=== PATIENT | male | born 1955 | race Caucasian/White ===

== ENCOUNTER 2018-03-13 08:05 | Outpatient (REF) | payer OTHER, SELFPAY ==
[2018-03-13 23:12] LABS: Microalb ug/mg Crea 37.9 ug/mg Cr
== END 2018-03-13 08:25 ==
LOC: NCHCN 08:05
PROVIDERS: Visit Provider Internal Medicine
DX: E11.9 Type 2 diabetes mellitus without complications (principal)
CPT/HCPCS: 82043; 82570

== ENCOUNTER 2019-03-04 11:43 | Outpatient (REF) | payer OTHER, SELFPAY ==
[2019-03-04 21:44] LABS: COMMENT (LAB VIEW ONLY) 136.85 mg/dL
[2019-03-04 21:48] LABS: Anion Gap 10.8 mmol/L (3-11); BUN 14 mg/dL (7-18); CO2 26.2 mmol/L (21.0-32.0); CREATININE 0.97 mg/dL (0.70-1.30); Calcium 9.4 mg/dL (8.5-10.1); Calculated LDL 50 mg/dL; Chloride 101 mmol/L (98-107); Cholesterol 123 mg/dL (50-200); Glucose 193 mg/dL (70-100); HDL Cholesterol 34 mg/dL (40-60); Potassium 3.7 mmol/L (3.5-5.1); Sodium 138 mmol/L (136-145); Triglyceride 195 mg/dL (30-150)
[2019-03-04 22:07] LABS: Hemoglobin A1C 7.6 % (4.5-6.2)
== END 2019-03-04 12:03 ==
LOC: NCHCN 11:43
PROVIDERS: Visit Provider Internal Medicine
DX: E11.21 Type 2 diabetes mellitus with diabetic nephropathy (principal); I10 Essential (primary) hypertension; E66.9 Obesity, unspecified
CPT/HCPCS: 80048; 80061; 82043; 82570; 83036

== ENCOUNTER 2020-02-09 11:19 | Outpatient (REF) | payer OTHER, SELFPAY ==
[2020-02-09 21:14] LABS: ALT 42 U/L (16-63); AST 32 U/L (15-37); Albumin 4.1 g/dL (3.4-5.0); Alkaline Phosphatase 66 U/L (46-116); Anion Gap 11.5 mmol/L (3-11); BUN 19 mg/dL (7-18); Bilirubin, Total 0.6 mg/dL (0.2-1.0); CO2 24.5 mmol/L (21.0-32.0); CREATININE 0.91 mg/dL (0.70-1.30); Calcium 9.4 mg/dL (8.5-10.1); Calculated LDL 52 mg/dL (<100); Chloride 101 mmol/L (98-107); Cholesterol 117 mg/dL (<200); Glucose 206 mg/dL (74-106); HDL Cholesterol 31 mg/dL (40-60); Potassium 4.1 mmol/L (3.5-5.1); Sodium 137 mmol/L (136-145); Total Protein 7.7 g/dL (6.4-8.2); Triglyceride 173 mg/dL (<150)
[2020-02-09 21:20] LABS: Microalb ug/mg Crea 29.1 ug/mg Cr
== END 2020-02-09 11:39 ==
LOC: NCHCN 11:19
PROVIDERS: Visit Provider Internal Medicine
DX: I10 Essential (primary) hypertension (principal); E78.5 Hyperlipidemia, unspecified
CPT/HCPCS: 80053; 80061; 82043; 82570

== ENCOUNTER 2020-03-24 22:33 | Outpatient (REF) | payer OTHER, SELFPAY ==
[2020-03-24 22:13] LABS: ALT 39 U/L (16-63); AST 30 U/L (15-37); Alkaline Phosphatase 62 U/L (46-116); Anion Gap 8.5 mmol/L (3-11); BUN 15 mg/dL (7-18); Bilirubin, Total 0.7 mg/dL (0.2-1.0); CO2 28.5 mmol/L (21.0-32.0); CREATININE 0.96 mg/dL (0.70-1.30); Calculated LDL 39 mg/dL (<100); Chloride 103 mmol/L (98-107); Cholesterol 112 mg/dL (<200); Glucose 177 mg/dL (74-106); HDL Cholesterol 29 mg/dL (40-60); Sodium 140 mmol/L (136-145); Total Protein 7.3 g/dL (6.4-8.2); Triglyceride 221 mg/dL (<150)
== END 2020-03-24 22:53 ==
LOC: NCHCN 22:33
PROVIDERS: Visit Provider Internal Medicine
DX: E11.9 Type 2 diabetes mellitus without complications (principal); I10 Essential (primary) hypertension; E78.5 Hyperlipidemia, unspecified; E66.9 Obesity, unspecified
CPT/HCPCS: 80053; 80061

== ENCOUNTER 2020-08-16 16:32 | Outpatient (REF) | payer MEDICARE, SELFPAY ==
[2020-08-16 13:43] LABS: Anion Gap 12.1 mmol/L (3-11); BUN 13 mg/dL (7-18); CO2 26.9 mmol/L (21.0-32.0); CREATININE 0.9 mg/dL (0.70-1.30); Calcium 9.3 mg/dL (8.5-10.1); Chloride 102 mmol/L (98-107); Glucose 151 mg/dL (74-106); Potassium 3.7 mmol/L (3.5-5.1); Sodium 141 mmol/L (136-145)
== END 2020-08-16 16:33 | disposition home or self-care (01) ==
LOC: NCHCN 16:32
PROVIDERS: Visit Provider Internal Medicine
DX: I10 Essential (primary) hypertension (principal); E11.9 Type 2 diabetes mellitus without complications
CPT/HCPCS: 80048

== ENCOUNTER 2021-01-14 16:06 | Outpatient (REF) | payer MEDICARE, SELFPAY ==
[2021-01-14 14:46] LABS: Abs Immature Grans 0.04 10^3/uL (0.0-0.06); Absolute Basophil Count 0.04 10^3/uL (0.0-0.2); Absolute Eosinophil Count 0.12 10^3/uL (0.0-0.7); Absolute Lymphocyte Count 2.52 10^3/uL (1.2-3.4); Absolute Monocyte Count 0.75 10^3/uL (0.1-0.8); Basophils % 0.6; Eosinophils % 1.7; HCT 45.6 % (40.0-50.0); HGB 15.4 g/dL (13.5-17.5); Immature Grans % 0.6; Lymphocytes % 36.2; MCH 29.9 pg (27.0-33.0); MCHC 33.8 % (32.0-36.0); MCV 88.5 fL (80-95); MPV 11.4 fL (8.0-11.0); Monocytes % 10.8; Neutrophils % 50.1; Nucleated RBC 0 %; Platelet Count 143 10^3/uL (130-400); RBC 5.15 10^6/uL (4.36-5.78); RDW 12.8 % (11.8-14.1); RDW-SD 41.8 fL; WBC 6.97 10^3/uL (4.4-10.8)
[2021-01-14 14:57] LABS: COMMENT (LAB VIEW ONLY) 33.72 mg/dL; Microalb ug/mg Crea 21.1 ug/mg Cr
== END 2021-01-14 16:07 | disposition home or self-care (01) ==
LOC: NCHCN 16:06
PROVIDERS: Visit Provider Nurse Practitioner Family
DX: E11.9 Type 2 diabetes mellitus without complications (principal)
CPT/HCPCS: 82043; 82570; 85025

== ENCOUNTER 2021-10-28 18:39 | Outpatient (REF) | payer OTHER, SELFPAY ==
[2021-10-28 15:11] LABS: ALT 59 U/L (16-63); AST 48 U/L (15-37); Albumin 3.9 g/dL (3.4-5.0); Alkaline Phosphatase 104 U/L (46-116); Anion Gap 11.1 mmol/L (3-11); BUN 14 mg/dL (7-18); Bilirubin, Total 0.6 mg/dL (0.2-1.0); CO2 26.9 mmol/L (21.0-32.0); CREATININE 0.9 mg/dL (0.70-1.30); Calcium 9.1 mg/dL (8.5-10.1); Calculated LDL 58 mg/dL (<100); Chloride 101 mmol/L (98-107); Cholesterol 130 mg/dL (<200); Glucose 196 mg/dL (74-106); HDL Cholesterol 37 mg/dL (40-60); Potassium 3.8 mmol/L (3.5-5.1); Sodium 139 mmol/L (136-145); Total Protein 7.5 g/dL (6.4-8.2); Triglyceride 178 mg/dL (<150)
[2021-10-28 15:17] LABS: COMMENT (LAB VIEW ONLY) 91.92 mg/dL; Microalb ug/mg Crea 34.4 ug/mg Cr
== END 2021-10-28 18:40 | disposition home or self-care (01) ==
LOC: NCHCN 18:39
PROVIDERS: Visit Provider Internal Medicine
DX: E11.9 Type 2 diabetes mellitus without complications (principal); I10 Essential (primary) hypertension
CPT/HCPCS: 80053; 80061; 82043; 82570

== ENCOUNTER 2022-09-14 09:09 | Outpatient (REF) | payer OTHER, SELFPAY ==
[2022-09-14 16:12] LABS: ALT 62 U/L (16-63); AST 54 U/L (15-37); Alkaline Phosphatase 98 U/L (46-116); Anion Gap 8.9 mmol/L (3-11); BUN 19 mg/dL (7-18); Bilirubin, Total 0.5 mg/dL (0.2-1.0); CO2 26.1 mmol/L (21.0-32.0); CREATININE 1.1 mg/dL (0.70-1.30); Calcium 9.6 mg/dL (8.5-10.1); Calculated LDL 70 mg/dL (<100); Chloride 99 mmol/L (98-107); Cholesterol 135 mg/dL (<200); Estimated GFR 73.58 (mL/min/1.73m2); Glucose 164 mg/dL (74-106); HDL Cholesterol 45 mg/dL (40-60); Sodium 134 mmol/L (136-145); Triglyceride 104 mg/dL (<150)
[2022-09-14 17:10] LABS: COMMENT (LAB VIEW ONLY) 66.29 mg/dL; Microalb ug/mg Crea 23.5 ug/mg Cr
== END 2022-09-14 09:10 | disposition home or self-care (01) ==
LOC: NCHCN 09:09
PROVIDERS: Visit Provider Nurse Practitioner Family
DX: E11.9 Type 2 diabetes mellitus without complications (principal); I10 Essential (primary) hypertension
CPT/HCPCS: 80053; 80061; 82043; 82570

== ENCOUNTER 2023-08-15 08:12 | Outpatient (REF) | payer OTHER, SELFPAY ==
[2023-08-15 14:48] LABS: Hemoglobin A1C 7.1 % (<5.7)
[2023-08-15 15:03] LABS: ALT 65 U/L (16-63); AST 76 U/L (15-37); Albumin 3.9 g/dL (3.4-5.0); Alkaline Phosphatase 115 U/L (46-116); Anion Gap 10.3 mmol/L (3-11); BUN 19 mg/dL (7-18); Bilirubin, Total 0.6 mg/dL (0.2-1.0); CO2 26.7 mmol/L (21.0-32.0); Calcium 9.9 mg/dL (8.5-10.1); Calculated LDL 78 mg/dL (<100); Chloride 104 mmol/L (98-107); Cholesterol 143 mg/dL (<200); Estimated GFR 81.98 (mL/min/1.73m2); Glucose 172 mg/dL (74-106); HDL Cholesterol 44 mg/dL (40-60); Potassium 4.1 mmol/L (3.5-5.1); Sodium 141 mmol/L (136-145); Total Protein 8.2 g/dL (6.4-8.2); Triglyceride 108 mg/dL (<150)
== END 2023-08-15 08:13 | disposition home or self-care (01) ==
LOC: NCHCN 08:12
PROVIDERS: Visit Provider Nurse Practitioner Family
DX: E78.5 Hyperlipidemia, unspecified (principal); E11.8 Type 2 diabetes mellitus with unspecified complications
CPT/HCPCS: 80053; 80061; 83036

== ENCOUNTER 2023-08-21 14:42 | Outpatient (REF) | payer OTHER, SELFPAY ==
[2023-08-21 17:09] LABS: COMMENT (LAB VIEW ONLY) 30.64 mg/dL; Microalb ug/mg Crea 37.9 ug/mg Cr
== END 2023-08-21 14:43 | disposition home or self-care (01) ==
LOC: NCHCN 14:42
PROVIDERS: Referring Provider Nurse Practitioner Family; Visit Provider Nurse Practitioner Family
DX: E11.8 Type 2 diabetes mellitus with unspecified complications (principal)
CPT/HCPCS: 82043; 82570

== ENCOUNTER 2023-10-02 13:36 | Outpatient (REF) | payer OTHER, SELFPAY ==
[2023-10-02 21:30] LABS: Abs Immature Grans 0.02 10^3/uL (0.0-0.06); Absolute Basophil Count 0.03 10^3/uL (0.0-0.2); Absolute Eosinophil Count 0.18 10^3/uL (0.0-0.7); Absolute Monocyte Count 0.69 10^3/uL (0.1-0.8); Basophils % 0.4; Eosinophils % 2.2; HCT 41.3 % (40.0-50.0); HGB 14.1 g/dL (13.5-17.5); Immature Grans % 0.2; Lymphocytes % 34.9; MCH 30.9 pg (27.0-33.0); MCHC 34.1 % (32.0-36.0); MCV 90 fL (80-95); MPV 12.8 fL (8.0-11.0); Monocytes % 8.3; Platelet Count 107 10^3/uL (130-400); RBC 4.57 10^6/uL (4.36-5.78); WBC 8.32 10^3/uL (4.4-10.8)
[2023-10-02 21:40] LABS: Bilirubin Negative (Negative); Blood Trace-intact (Negative); Clarity Sl Cloudy (Clear); Glucose >=1000 mg/dL (Negative); Ketones Negative (Negative); Leukocyte Esterase Negative (Negative); Nitrite Negative (Negative); Specific Gravity 1.025 (1.005-1.025); Urobilinogen 0.2 mg/dL (Up to 0.2); pH 5.5 (5-8)
[2023-10-02 21:48] LABS: Bacteria Rare HPF (Negative); C & S Indicated? No; Casts Negative LPF (Negative); Crystals Negative HPF (Negative); Epithelial Cells Negative HPF (Negative); Mucus Negative (Negative); RBC 0-2 HPF (0-2); WBC Negative HPF (0-5)
[2023-10-02 22:25] LABS: Vitamin B12 257 pg/mL (193-986)
[2023-10-04 08:58] LABS: HBs Antibody, Quant <3.1 mIU/mL (See Note); Hepatitis B Surface Ab Negative (See Note)
[2023-10-04 09:11] LABS: Hepatitis B Surface Ag Negative (Negative)
[2023-10-04 09:39] LABS: Hep B Core Antibody Negative (Negative)
[2023-10-04 09:52] LABS: Hepatitis C Ab w Rflx HCV PCR Negative (Negative)
[2023-10-04 15:45] LABS: IgA 629 mg/dL (85-499); Interpretation (See Note)
[2023-10-10 17:06] LABS: Alpha-1-Antitrypsin 78 mg/dL (100 - 190); Alpha-1-Antitrypsin Phenotype M bands
== END 2023-10-02 13:37 | disposition home or self-care (01) ==
LOC: NCHCN 13:36
PROVIDERS: Referring Provider Nurse Practitioner Family; Visit Provider Nurse Practitioner Family
DX: R74.01 Elevation of levels of liver transaminase levels (principal)
CPT/HCPCS: 82784; 83516; 86704; 86706; 86803; 87340; 81003; 81015; 82103; 82104; 82607; 85025

== ENCOUNTER 2023-10-11 17:02 | Outpatient (REF) | payer OTHER, SELFPAY ==
[2023-10-11 16:13] LABS: INR 1.1 (0.9-1.1); Prothrombin Time 11.3 sec (9.1-11.1)
[2023-10-11 16:57] LABS: Iron 129 ug/dL (65-175); Total Iron Binding Capacity 388 ug/dL (250-450); Transferrin Sat 33 % (20-55)
[2023-10-11 17:50] LABS: Ferritin 313 ng/mL (26-388)
[2023-10-12 09:51] LABS: AFP Tumor Marker 8.3 ng/mL (<8.1)
[2023-10-13 14:27] LABS: Mitochondrial Ab, M2 <0.1 U
== END 2023-10-11 17:03 | disposition home or self-care (01) ==
LOC: NCHCN 17:02
PROVIDERS: Visit Provider Nurse Practitioner Family
DX: K74.60 Unspecified cirrhosis of liver (principal)
CPT/HCPCS: 83516; 82105; 82728; 83540; 83550; 85610

== ENCOUNTER 2024-08-21 10:00 | Outpatient (REF) | payer MEDICARE, SELFPAY ==
[2024-08-21 14:43] LABS: HCT 36.9 % (40.0-50.0); HGB 11.7 g/dL (13.5-17.5); MCH 25.7 pg (27.0-33.0); MCHC 31.7 % (32.0-36.0); MCV 81 fL (80-95); RBC 4.56 10^6/uL (4.36-5.78); WBC 6.42 10^3/uL (4.4-10.8)
[2024-08-21 14:48] LABS: INR 1.1 (0.9-1.1); Prothrombin Time 11.3 sec (9.1-11.1)
[2024-08-21 15:09] LABS: ALT 43 U/L (16-63); AST 67 U/L (15-37); Albumin 3.6 g/dL (3.4-5.0); Alkaline Phosphatase 111 U/L (46-116); Anion Gap 8.9 mmol/L (3-11); BUN 10 mg/dL (7-18); Bilirubin, Total 0.73 mg/dL (0.2-1.0); CO2 25.1 mmol/L (21.0-32.0); CREATININE 0.9 mg/dL (0.70-1.30); Calcium 9.4 mg/dL (8.5-10.1); Calculated LDL 63 mg/dL (<100); Chloride 106 mmol/L (98-107); Cholesterol 121 mg/dL (<200); Estimated GFR 92.45 (mL/min/1.73m2); Glucose 178 mg/dL (74-106); HDL Cholesterol 39 mg/dL (40-60); Potassium 4.2 mmol/L (3.5-5.1); Sodium 140 mmol/L (136-145); Total Protein 7.9 g/dL (6.4-8.2); Triglyceride 98 mg/dL (<150)
[2024-08-21 15:11] LABS: COMMENT (LAB VIEW ONLY) 58.48 mg/dL; Microalb ug/mg Crea 93.9 ug/mg Cr
== END 2024-08-21 10:01 | disposition home or self-care (01) ==
LOC: NCHCN 10:00
PROVIDERS: Visit Provider Nurse Practitioner Family
DX: E11.8 Type 2 diabetes mellitus with unspecified complications (principal); K74.60 Unspecified cirrhosis of liver
CPT/HCPCS: 80053; 80061; 85027; 82043; 82570; 85610

== ENCOUNTER 2024-09-16 12:57 | Outpatient (REF) | payer MEDICARE, SELFPAY ==
[2024-09-16 15:39] LABS: Anion Gap 10.8 mmol/L (3-11); BUN 12 mg/dL (7-18); CO2 23.2 mmol/L (21.0-32.0); Calcium 9.4 mg/dL (8.5-10.1); Chloride 107 mmol/L (98-107); Estimated GFR 81.47 (mL/min/1.73m2); Glucose 189 mg/dL (74-106); Potassium 4.3 mmol/L (3.5-5.1); Sodium 141 mmol/L (136-145)
== END 2024-09-16 12:58 | disposition home or self-care (01) ==
LOC: NCHCN 12:57
PROVIDERS: PCP Nurse Practitioner Family; Visit Provider Nurse Practitioner Family
DX: I10 Essential (primary) hypertension (principal)
CPT/HCPCS: 80048

== ENCOUNTER 2024-12-12 15:15 | Outpatient (REF) | payer MEDICARE, SELFPAY ==
[2024-12-12 14:56] LABS: HCT 30.6 % (40.0-50.0); HGB 9.6 g/dL (13.5-17.5); MCH 27.7 pg (27.0-33.0); MCHC 31.4 % (32.0-36.0); MCV 88 fL (80-95); MPV 12.6 fL (8.0-11.0); Platelet Count 130 10^3/uL (130-400); RBC 3.47 10^6/uL (4.36-5.78); RDW 18.7 % (11.8-14.1); WBC 7.43 10^3/uL (4.4-10.8)
[2024-12-12 15:07] LABS: INR 1.1 (0.9-1.1); Prothrombin Time 10.8 sec (9.1-11.1)
[2024-12-12 15:39] LABS: ALT 82 U/L (16-63); AST 91 U/L (15-37); Albumin 3.4 g/dL (3.4-5.0); Alkaline Phosphatase 131 U/L (46-116); Anion Gap 7.3 mmol/L (3-11); BUN 10 mg/dL (7-18); Bilirubin, Total 0.7 mg/dL (0.2-1.0); CO2 27.7 mmol/L (21.0-32.0); CREATININE 1.1 mg/dL (0.70-1.30); Calcium 9.1 mg/dL (8.5-10.1); Chloride 105 mmol/L (98-107); Estimated GFR 72.22 (mL/min/1.73m2); Ferritin 139 ng/mL (26-388); Glucose 164 mg/dL (74-106); Potassium 4.5 mmol/L (3.5-5.1); Sodium 140 mmol/L (136-145); Total Protein 7.1 g/dL (6.4-8.2)
== END 2024-12-12 15:16 | disposition home or self-care (01) ==
LOC: NCHCN 15:15
PROVIDERS: PCP Nurse Practitioner Family; Visit Provider Family Medicine
DX: Z08 Encounter for follow-up examination after completed treatment for malignant neoplasm (principal); Z87.19 Personal history of other diseases of the digestive system
CPT/HCPCS: 80053; 85027; 82728; 85610

== ENCOUNTER 2025-02-19 12:26 | Outpatient (REF) | payer MEDICARE, SELFPAY ==
[2025-02-19 15:49] LABS: HCT 35.0 % (40.0-50.0); HGB 10.6 g/dL (13.5-17.5); MCH 24.7 pg (27.0-33.0); MCHC 30.3 % (32.0-36.0); MCV 81 fL (80-95); RBC 4.30 10^6/uL (4.36-5.78); RDW 16.7 % (11.8-14.1); RDW-SD 48.9 fL; WBC 7.66 10^3/uL (4.4-10.8)
[2025-02-19 15:58] LABS: ALT 50 U/L (16-63); AST 75 U/L (15-37); Albumin 3.4 g/dL (3.4-5.0); Alkaline Phosphatase 124 U/L (46-116); Anion Gap 6.1 mmol/L (3-11); BUN 12 mg/dL (7-18); Bilirubin, Total 1.0 mg/dL (0.2-1.0); CO2 27.9 mmol/L (21.0-32.0); Calcium 9.2 mg/dL (8.5-10.1); Chloride 106 mmol/L (98-107); Estimated GFR 80.97 (mL/min/1.73m2); Glucose 183 mg/dL (74-106); Potassium 4.3 mmol/L (3.5-5.1); Sodium 140 mmol/L (136-145); Total Protein 7.5 g/dL (6.4-8.2)
== END 2025-02-19 12:27 | disposition home or self-care (01) ==
LOC: NCHCN 12:26
PROVIDERS: PCP Nurse Practitioner Family; Visit Provider Nurse Practitioner Family
DX: I10 Essential (primary) hypertension (principal); D64.9 Anemia, unspecified
CPT/HCPCS: 80053; 85027